=== PATIENT | male | born 1945 | race Caucasian/White ===

== ENCOUNTER 2018-03-20 18:54 | Emergency (ER) | payer MEDICARE ==
[2018-03-20 19:21] VITALS: BP 170/88; PULSE 75; RESP 20; TEMP 98.2; O2SAT 96
[2018-03-20] MEDS ORDERED: Bacitracin 500 Units/gm Oint Foilpak UD TOP ONE (19:56)
[2018-03-20] MEDS ORDERED: Tdap Vaccine 0.5 ml Vial (10-64 yrs) IM ONE ×2 (19:56→20:07)
[2018-03-20] MEDS ORDERED: Lidocaine 1%/Epinephrine 1:100000 30 ml vial IJ STA (19:57)
[2018-03-20] MEDS ORDERED: Bacitracin 500 Units/gm Oint Foilpak UD ONE (20:07)
--- NOTE | 2018-03-20 20:32 | C.PDOC ---
History Of Present Illness 72 y/o male presents to the ER for evaluation of a laceration sustained to the left hand approximately 2 hours [employer]. Patient states that he was cooking when a glass jar broke and he cut the base of the 2nd finger of the left hand. Patient denies having other injuries, weakness, and numbness. Time Seen by Provider: 03/20/18 19:51 Chief Complaint (Nursing): Abnormal Skin Integrity History Per: Patient History/Exam Limitations: no limitations Onset/Duration Of Symptoms: Hrs Current Symptoms Are (Timing): Still Present Severity: Moderate Past Medical History Reviewed: Historical Data, Nursing Documentation, Vital Signs Vital Signs: Last Vital Signs Temp 98.2 F 03/20/18 19:18 Pulse 75 03/20/18 19:18 Resp 20 03/20/18 19:18 BP 170/88 H 03/20/18 19:18 Pulse Ox 96 03/20/18 21:18 - Medical History PMH: No Chronic Diseases Surgical History: No Surg Hx Family History: States: No Known Family Hx - Social History Hx Alcohol Use: No Hx Substance Use: No - Immunization History Hx Tetanus Toxoid Vaccination: No Hx Influenza Vaccination: No Hx Pneumococcal Vaccination: No Review Of Systems Except As Marked, All Systems Reviewed And Found Negative. Skin: Positive for: Other (laceration to left hand) Neurological: Negative for: Weakness, Numbness Physical Exam - Physical Exam Appears: Non-toxic, No Acute Distress Skin: Normal Color, Warm, Dry, Other (1cm x 1cm square shaped avulsion to the distal aspect of left hand at the base of 2nd finger) Head: Atraumatic, Normacephalic Eye(s): bilateral: Normal Inspection Nose: Normal Oral Mucosa: Moist Neck: Supple Chest: Symmetrical Respiratory: No Accessory Muscle Use Extremity: Normal ROM, No Swelling Neurological/Psych: Oriented x3, Normal Speech, Normal Motor, Normal Sensation Gait: Steady ED Course And Treatment O2 Sat by Pulse Oximetry: 96 (RA) Pulse Ox Interpretation: Normal Medical Decision Making Medical Decision Making: Plan: --X-Ray - Left Hand Xrays shows no fracture or foreign body seen. Wound was irrigated with sterile saline and betadine. Pressure was applied for hemostasis without relief. Lidocaine with epi injected without relief of hemostasis. Gelfoam used for hemostasis without relief. Silver nitrate was applied to bleeding areas with good hemostasis. sterile dressing applied/ Disposition - Disposition Referrals: [facility] at [facility] [Outside] Disposition: HOME/ ROUTINE Disposition Time: 21:18 Condition: GOOD Additional Instructions: KEEP THE WOUND DRY AND CLEAN. DO NOT REMOVE THE BANDAGES. RETURN TO THE ED ON 03/25/18 FOR WOUND CHECK. RETURN SOONER IF WORSENED. Instructions: Wound Care (DC) Forms: [employer] (Macedonian) - Clinical Impression Clinical Impression: Skin avulsion - PA / [employer]GER / Resident Statement MD/DO has reviewed & agrees with the documentation as recorded. - Scribe Statement The provider has reviewed the documentation as recorded by the Alniaibe Leobardo Fallon Provider Attestation All medical record entries made by the Alinaibe were at my direction and personally dictated by me. I have reviewed the chart and agree that the record accurately reflects my personal performance of the history, physical exam, medical decision making, and the department course for this patient. I have also personally directed, reviewed, and agree with the discharge instructions and disposition.
[2018-03-20] MEDS ORDERED: Silver Nitrate Topical - Stick ONE ×2 (20:56→21:02)
[2018-03-20] MEDS ORDERED: Absorbable Gelatin Sponge Size 12-7 ONE (20:56)
[2018-03-20] MEDS ORDERED: Absorbable Gelatin Sponge Size 100 MM STA (21:00)
[2018-03-20] MEDS ORDERED: Silver Nitrate Topical - Stick TOP ONE (21:01)
--- NOTE | 2018-03-21 09:25 | RAD ---
Left hand three views History: Laceration. Evaluate for foreign body. Comparison: None available. Findings: Soft tissue laceration seen in the dorsal soft tissues. No evidence of discrete radiopaque foreign body identified. Degenerative changes noted at the 2nd thru 5th PIP and DIP joint spaces well as the 1st carpometacarpal joint space. Impression: No evidence of discrete radiopaque foreign body. If there is persistent concern, consider further evaluation with ultrasound.
== END 2018-03-20 21:21 | disposition home or self-care (01) ==
LOC: C.ER 18:54
DX: S61.412A Laceration without foreign body of left hand, initial encounter (principal); W25.XXXA Contact with sharp glass, initial encounter; Y93.G3 Activity, cooking and baking; Y92.000 Kitchen of unspecified non-institutional (private) residence as the place of occurrence of the external cause; Z23 Encounter for immunization

== ENCOUNTER 2018-03-25 08:09 | Emergency (ER) | payer MEDICARE ==
[2018-03-25 08:19] VITALS: BP 166/85; PULSE 77; RESP 20; TEMP 98; O2SAT 100
--- NOTE | 2018-03-25 08:31 | C.PDOC ---
History Of Present Illness 72-year-old male, presents to the emergency department for wound check. Patient was evaluated in ED on 03/20 for a laceration to left hand, while he was cooking. His wound was cleansed and dressed in sterile fashion, and he was discharged, and told to return today for evaluation of wound. Time Seen by Provider: 03/25/18 08:11 Chief Complaint (Nursing): Wound Check History Per: Patient History/Exam Limitations: no limitations Current Symptoms Are (Timing): Still Present Past Medical History Reviewed: Historical Data, Nursing Documentation, Vital Signs Vital Signs: Last Vital Signs Temp 98 F 03/25/18 08:16 Pulse 77 03/25/18 08:16 Resp 20 03/25/18 08:16 BP 166/85 H 03/25/18 08:16 Pulse Ox 100 03/25/18 12:18 Family History: States: No Known Family Hx - Social History Hx Alcohol Use: No Hx Substance Use: No - Immunization History Hx Tetanus Toxoid Vaccination: Yes Hx Influenza Vaccination: No Hx Pneumococcal Vaccination: No Review Of Systems Constitutional: Negative for: Fever Gastrointestinal: Negative for: Vomiting Skin: Negative for: Rash Neurological: Negative for: Weakness, Numbness Physical Exam - Physical Exam Appears: Non-toxic, No Acute Distress Skin: Normal Color, Warm, Dry, No Rash Head: Normacephalic Eye(s): bilateral: Normal Inspection Nose: Normal Oral Mucosa: Moist Lips: Normal Appearing Neck: Normal ROM Chest: Symmetrical Extremity: Normal ROM, Capillary Refill (<2 seconds), No Deformity, No Swelling , Other (healing avulsion to distal-palmar aspect of left hand at the base of 2nd finger) Pulses: Left Radial: Normal, Right Radial: Normal Neurological/Psych: Oriented x3, Normal Speech, Normal Motor, Normal Sensation Gait: Steady ED Course And Treatment O2 Sat by Pulse Oximetry: 100 (RA) Pulse Ox Interpretation: Normal Medical Decision Making Medical Decision Making: The wound is healing well. No signs of cellulitis. No antibiotics needed at this time. Patient instructed to clean twice a day with soap and water, apply bacitracin. Wound was cleansed with sterile saline and sterile dressing applied. Disposition - Disposition Referrals: Jimmy Corona MD [Staff Provider] - Disposition: HOME/ ROUTINE Disposition Time: 08:29 Condition: GOOD Additional Instructions: Return if worsened. Instructions: Wound Care (DC) Forms: [employer] (Croatian) - Clinical Impression Clinical Impression: Visit for wound check - Scribe Statement The provider has reviewed the documentation as recorded by the Scribe (Victoriano Jose) All medical record entries made by the Scribe were at my direction and personally dictated by me. I have reviewed the chart and agree that the record accurately reflects my personal performance of the history, physical exam, medical decision making, and the department course for this patient. I have also personally directed, reviewed, and agree with the discharge instructions and disposition.
== END 2018-03-25 08:50 | disposition home or self-care (01) ==
LOC: C.ER 08:09
DX: Z48.00 Encounter for change or removal of nonsurgical wound dressing (principal)